=== PATIENT | male | born 1995 | race American Indian/Alaskan Native ===

== ENCOUNTER 2021-02-11 11:22 | Outpatient (CLI) | payer OTHER ==
--- NOTE | 2021-02-11 13:33 | Cat Scan Report ---
CT ABDOMEN AND PELVIS WITHOUT CONTRAST INDICATION / CLINICAL INFORMATION: SCROTAL PAIN X2 YEARS. Abdominal and pelvic pain TECHNIQUE: Axial CT images were obtained through the abdomen and pelvis without IV contrast. All CT scans at [facility] location are performed using CT dose reduction for ALARA by means of automated exposure control. COMPARISON: None available. FINDINGS: LOWER CHEST: No significant abnormality. LIVER: No significant abnormality. GALLBLADDER: No significant abnormality. BILE DUCTS: No significant abnormality. PANCREAS: No significant abnormality. SPLEEN: No significant abnormality. ADRENALS: No significant abnormality. RIGHT KIDNEY and URETER: No significant abnormality. LEFT KIDNEY and URETER: No significant abnormality. STOMACH and SMALL BOWEL: No significant abnormality. COLON: No significant abnormality. APPENDIX: No significant abnormality. PERITONEUM: No free fluid. No free air. No fluid collection. LYMPH NODES: No significant adenopathy. AORTA and ARTERIES: No significant abnormality. IVC and VEINS: No significant abnormality. URINARY BLADDER: No significant abnormality. REPRODUCTIVE ORGANS: No significant abnormality. ADDITIONAL FINDINGS: None. SKELETAL SYSTEM: No significant abnormality. IMPRESSION: 1. No significant abnormality. Signer Name: Jai Franco MD Signed: 02/11/2021 1:28 PM Workstation Name: [id number]
--- NOTE | 2021-02-11 15:51 | Ultrasound Report ---
ULTRASOUND SCROTUM INDICATION / CLINICAL INFORMATION: TESTICULAR PAIN. COMPARISON: None available. FINDINGS -- RIGHT: TESTIS: Size = 4.6 x 2.6 x 2.0 cm. - Appearance: 2 mm focal calcification. Otherwise, normal appearance. - Cyst / Mass: None. - Color Doppler Flow: Present. No significant abnormality. EPIDIDYMIS: No significant abnormality. HYDROCELE: None. VARICOCELE: None demonstrated. FINDINGS -- LEFT: TESTIS: Size = 4.6 x 2.7 x 2.0 cm. - Appearance: No significant abnormality. - Cyst / Mass: None. - Color Doppler Flow: Present. No significant abnormality. EPIDIDYMIS: Simple epididymal head cyst measuring 7 mm in maximum dimension. HYDROCELE: None. VARICOCELE: A small left varicocele is noted. ADDITIONAL FINDINGS: None. IMPRESSION: 1. No acute findings to explain the patient's testicular pain. 2. Additional findings as above. Scribed by: Mishel Haque RDMS, RVT Scribed: 02/11/2021 1:33 PM I have reviewed the images, agree with this report, and edited this report as needed. Signer Name: Tulio aCin MD Signed: 02/11/2021 3:44 PM Workstation Name: [email or web address]
== END 2021-02-11 11:23 | disposition home or self-care (01) ==
LOC: CT 11:22
PROVIDERS: ATTEND Urology
DX: N50.3 Cyst of epididymis (principal); I86.1 Scrotal varices
CPT/HCPCS: 74176; 93975